=== PATIENT | male | born 1960 | race Caucasian/White ===

== ENCOUNTER 2018-08-10 17:24 | Emergency (ER) | payer SELFPAY ==
[~2018-08-10] VITALS: Ht 172.7 cm; Wt 77.3 kg
[2018-08-10 17:35] VITALS: BP 158/88; PULSE 111; RESP 20; Ht 172.7 cm; Wt 77.3 kg
== END 2018-08-10 22:50 | disposition left against medical advice (07) ==
LOC: E/R 17:24
DX: Z53.21 Procedure and treatment not carried out due to patient leaving prior to being seen by health care provider (principal)